=== PATIENT | male | born 1955 | race Caucasian/White ===

== ENCOUNTER 2023-07-15 13:00 | Day surgery (SDC) | payer MEDICARE, MEDICAID ==
[2023-07-15] MEDS: Brimonidine 0.2% Ophth Soln 5 ML Bottle EYELF SCH ×2 (12:32→13:57)
[2023-07-15] MEDS: Phenylephrine 2.5% Ophth Soln 2 ML Bot EYELF SCH ×2 (12:37→12:47)
[2023-07-15] MEDS: Tropicamide 1% Ophth Soln 3 ML Bottle EYELF SCH ×2 (12:42→12:52)
== END 2023-07-15 14:10 | disposition home or self-care (01) ==
LOC: JD.SDS 13:00
PROVIDERS: ATTEND Ophthalmology
DX: H26.9 Unspecified cataract (principal); F41.9 Anxiety disorder, unspecified; F03.90 Unspecified dementia, unspecified severity, without behavioral disturbance, psychotic disturbance, mood disturbance, and anxiety; F32.A Depression, unspecified; E78.00 Pure hypercholesterolemia, unspecified; I10 Essential (primary) hypertension; Z98.890 Other specified postprocedural states; H26.492 Other secondary cataract, left eye; Z79.899 Other long term (current) drug therapy
CPT/HCPCS: 66821; A9270